=== PATIENT | female | born 1945 | race Hispanic/Latino ===

== ENCOUNTER 2016-05-01 08:29 | Outpatient (CLI) | payer MEDICARE ==
[2016-05-01 10:41] LABS: ALT (SGPT) 17 U/L (0-55); AST (SGOT) 18 U/L (5-34); Alkaline Phosphatase 88 U/L (40-150); Anion Gap 14 mmol/L (10-20); BUN (Urea Nitrogen) 25 mg/dL (9.8-20.1); Bilirubin, Total 0.4 mg/dL (0.2-1.2); Calc. Creatinine Clearance 0 mL/min (70-130); Calcium 9.9 mg/dL (7.8-10.44); Carbon Dioxide 28 mmol/L (23-31); Chloride 104 mmol/L (98-107); Estimated GFR-MDRD 72; Globulin 3.2 g/dL (2.4-3.5); LDL Cholesterol, Calculated 64 mg/dL; Protein, Total 7.6 g/dL (5.8-8.1)
[2016-05-01 10:55] LABS: #Basophils 0.1 thou/uL (0.0-0.2); #Eosinphils 0.1 thou/uL (0.0-0.7); #Lymphocytes 1.3 thou/uL (1.20-3.40); #Monocytes 0.6 thou/uL (0.11-0.59); #Neutrophils 4.5 thou/uL (1.40-6.50); %Basophils 1.2 % (0.0-1.0); %Eosinophils 1.3 % (0.0-10.0); %Monocytes 8.5 % (0.0-10.0); Hematocrit 38.2 % (36.0-47.0); Red Blood Cell (RBC) Count 4.15 mill/uL (4.20-5.40); White Blood Cell (WBC) Count 6.5 thou/uL (4.8-10.8)
[2016-05-01 11:15] LABS: Hemoglobin A1c 6.2 % (4.0-6.0)
== END 2016-05-01 08:30 ==
LOC: HPCALD 08:29
PROVIDERS: ATTEND Family Medicine
DX: E78.00 Pure hypercholesterolemia, unspecified (principal); E11.9 Type 2 diabetes mellitus without complications
CPT/HCPCS: 36415; 80053; 80061; 83036; 85025

== ENCOUNTER 2016-11-03 08:58 | Outpatient (CLI) | payer MEDICARE ==
[2016-11-03 10:04] LABS: ALT (SGPT) 17 U/L (8-55); AST (SGOT) 19 U/L (5-34); Albumin 4.3 g/dL (3.4-4.8); Alkaline Phosphatase 104 U/L (40-150); Anion Gap 14 mmol/L (10-20); BUN (Urea Nitrogen) 22 mg/dL (9.8-20.1); Bilirubin, Total 0.4 mg/dL (0.2-1.2); Calc. Creatinine Clearance 0 mL/min (70-130); Calcium 9.6 mg/dL (7.8-10.44); Carbon Dioxide 23 mmol/L (23-31); Cardiac Risk 3.9 (Less than 4.5); Chloride 107 mmol/L (98-107); Cholesterol 171 mg/dl (< 200 Desired); Estimated GFR-MDRD 73; Globulin 3.3 g/dL (2.4-3.5); Glucose 105 mg/dL (83-110); HDL Cholesterol 44 mg/dL (>60 Neg Risk); LDL Cholesterol, Calculated 76 mg/dL; Potassium 4.4 mmol/L (3.5-5.1); Protein, Total 7.6 g/dL (6.0-8.3); Sodium 140 mmol/L (136-145); Triglycerides 253 mg/dL (Less than 150)
[2016-11-03 10:09] LABS: #Basophils 0.1 thou/uL (0.0-0.2); #Eosinphils 0.1 thou/uL (0.0-0.7); #Lymphocytes 1.5 thou/uL (1.20-3.40); #Monocytes 0.5 thou/uL (0.11-0.59); #Neutrophils 3.4 thou/uL (1.40-6.50); %Basophils 1.3 % (0.0-1.0); %Eosinophils 1.2 % (0.0-10.0); %Lymphocytes 27.1 % (21.0-51.0); %Monocytes 8.8 % (0.0-10.0); %Neutrophils 61.6 % (42.0-75.0); Hemoglobin 13.3 g/dL (12.0-16.0); Mean Corpuscular HGB CONC 33.5 g/dL (32.0-36.0); Mean Corpuscular Hemoglobin 31.1 pg (27.0-31.0); Mean Corpuscular Volume 92.9 fl (81.0-99.0); Platelet Count 231 thou/uL (130-400); RBC Distribution Width 11.9 % (11.5-14.5); Red Blood Cell (RBC) Count 4.27 mill/uL (4.20-5.40); White Blood Cell (WBC) Count 5.5 thou/uL (4.8-10.8)
[2016-11-03 10:40] LABS: Hemoglobin A1c 6.2 % (4.0-6.0)
== END 2016-11-03 08:59 | disposition home or self-care (01) ==
LOC: HPCALD 08:58
PROVIDERS: ATTEND Family Medicine
DX: E78.5 Hyperlipidemia, unspecified (principal); E11.9 Type 2 diabetes mellitus without complications; I10 Essential (primary) hypertension
CPT/HCPCS: 36415; 80053; 80061; 83036; 85025

== ENCOUNTER 2019-03-25 12:07 | Outpatient (CLI) | payer MEDICARE ==
--- NOTE | 2019-03-25 16:39 | RAD ---
RIGHT KNEE FOUR VIEWS No fracture was seen. There is some medial compartment bony spurring but not much joint space narrow ing. Some joint fluid is evident. IMPRESSION: Medial compartment bony spurring and joint fluid POS: HOME
--- NOTE | 2019-03-25 17:00 | RAD ---
ORBITS FOUR VIEWS: 03/25/19 The orbital rims all appeared intact. No fractures were detected. The maxillary sinuses are clear. Th ere may be some mucosal thickening in the ethmoid sinuses. The zygomatic arches are not seen optimall y. IMPRESSION: No acute bony findings. POS: HOME
--- NOTE | 2019-03-25 17:10 | RAD ---
NASAL BONES: 03/25/19 Three views demonstrate no apparent fracture. The nasal bones appear intact, as does the anterior carl al spine. The Snyder view shows clear maxillary sinuses. The zygomatic arches are not seen optimally but do appear intact. The septum is midline. IMPRESSION: No acute bony finding. POS: HOME
--- NOTE | 2019-03-25 17:23 | RAD ---
RIGHT ANKLE FOUR VIEWS: 03/25/19 There is considerable swelling around the ankle, especially laterally. No fracture or dislocation was seen. There is a linear metallic foreign body present in the soft tissues just anterior to the ankle joint. It appears to be a piece of a straight pin or similar object. A calcaneal spur is present. Th e articular surfaces of the ankle are smooth. IMPRESSION: 1. Soft tissue swelling but no acute bony changes. 2. Metallic foreign body anterior to the ankle joint. POS: HOME
== END 2019-03-25 12:08 | disposition home or self-care (01) ==
LOC: BURRAD 12:07
PROVIDERS: ATTEND Physician Assistant
DX: M25.571 Pain in right ankle and joints of right foot (principal); S80.01XA Contusion of right knee, initial encounter; S05.12XA Contusion of eyeball and orbital tissues, left eye, initial encounter; R22.0 Localized swelling, mass and lump, head; M79.89 Other specified soft tissue disorders; S90.551A Superficial foreign body, right ankle, initial encounter; M76.9 Unspecified enthesopathy, lower limb, excluding foot; Z91.81 History of falling
CPT/HCPCS: 70160; 70200